=== PATIENT | female | born 1960 | race Caucasian/White ===

== ENCOUNTER 2022-03-12 16:32 | Emergency (ER) | payer OTHER ==
[~2022-03-12] VITALS: Ht 153 cm; Wt 60.0 kg
[2022-03-12 16:44] VITALS: BP 159/91
[2022-03-12] MEDS ORDERED: IBUPROFEN 600 MG (MOTRIN) TAB PO ONE (17:30)
[2022-03-12] MEDS ORDERED: CEPHALEXIN 250 MG (KEFLEX) CAP PO ONE (17:30)
--- NOTE | 2022-03-12 17:33 | ED Upper Extremity ---
General Chief Complaint: Upper Extremity Stated Complaint: L SHOULDER PAIN, RAN OVER BY HORSE, KNOT ON BREAST Source: patient Exam Limitations: no limitations History of Present Illness Date Seen by Provider: Mar 12, 2022 Time Seen by Provider: 17:33 Allergies and Home Medications Allergies Coded Allergies: No Known Drug Allergies (Unverified , 05/22/15) Patient Home Medication List No Active Prescriptions or Reported Meds Past [id number] Hx Past Medical History Hysterectomy Coronary Artery Disease, High Cholesterol [employer] History: Hysterectomy Family Medical History Heart Disease, Renal Disease Physical Exam Vital Signs Capillary Refill : Height, Weight, BMI Height: 5'0" Weight: 130lbs. oz. [id number]; BMI Method: Progress/Results/Core Measures Results/Orders My Orders Orders - JUANITO HASKINS APRN Shoulder, Left, 3 Views (03/12/22 17:29) Mupirocin Ointment (Bactroban Ointment (03/12/22 21:00) Cephalexin Capsule (Keflex Capsule) (03/12/22 17:30) Ibuprofen Tablet (Motrin Tablet) (03/12/22 17:30) Mupirocin Ointment (Bactroban Ointment (03/12/22 17:39) Medications Given in ED Current Medications Medications Dose Ordered Sig/Gayle Route Start Time Stop Time Status Last Admin Dose Admin Cephalexin HCl 500 mg ONCE ONCE PO 03/12/22 17:30 03/12/22 17:32 DC 03/12/22 17:48 500 MG Ibuprofen 600 mg ONCE ONCE PO 03/12/22 17:30 03/12/22 17:32 DC 03/12/22 17:48 600 MG Mupirocin APPLY SPARINGLY ... BID ONCE TOP 03/12/22 21:00 03/12/22 21:01 03/12/22 17:48 22 GM Departure Impression Primary Impression: Staph skin infection Additional Impression: Left shoulder pain Disposition: HOME, SELF-CARE Condition: Improved Departure-Patient Inst. Decision time for Depature: 17:55 Referrals: NO,LOCAL PHYSICIAN (PCP/Family) Primary Care Physician Patient Instructions: LOCAL PHYSICIAN LIST, Shoulder Pain ED Add. Discharge Instructions: Plan: 1. Establish with primary care provider of your choice. 2. Apply Mupirocin ointment to breast twice a day. Wash gently with mild soap and water, pat dry, apply thin layer for 7 days. 3. Take antibiotics four times a day as directed. 4. May take Tylenol or Ibuprofen as needed for shoulder pain, take as directed per package. 5. Return for any new, concerning, or worsening symptoms. All discharge instructions reviewed with patient and/or family. Voiced understanding. Scripts Cephalexin (Cephalexin) 500 Mg Capsule 500 MG PO QID for 7 Days, #28 CAP 0 Refills Prov: JUANITO HASKINS APRN 03/12/22 JUANITO HASKINS APRN Mar 12, 2022 17:33
[2022-03-12] MEDS ORDERED: MUPIROCIN 2% OINT 22 GM (BACTROBAN) TUBE ONE (17:39)
[2022-03-12] MEDS ORDERED: CEPH500C PO (18:07)
--- NOTE | 2022-03-12 18:10 | Diagnostic Imaging Report ---
INDICATION: Left shoulder injury and pain. Time of Exam: 5:45 PM Glenohumeral and acromioclavicular alignment are normal. Acromiohumeral space is normal. No fracture or dislocation is identified. IMPRESSION: No acute abnormality is detected. Dictated by: Dictated on workstation # [id number]
[2022-03-12] MEDS ORDERED: MUPIROCIN 2% OINT 22 GM (BACTROBAN) TUBE TOP ONE (21:00)
== END 2022-03-12 18:20 | disposition home or self-care (01) ==
LOC: EDUNIT# 16:32 → ER 16:37
DX: M25.512 Pain in left shoulder (principal); L08.89 Other specified local infections of the skin and subcutaneous tissue; B95.8 Unspecified staphylococcus as the cause of diseases classified elsewhere; W55.12XA Struck by horse, initial encounter
CPT/HCPCS: 73030